=== PATIENT | female | born 1960 | race Caucasian/White ===

== ENCOUNTER 2017-01-26 06:30 | Day surgery (SDC) | payer BC, OTHER ==
[~2017-01-26] VITALS: Ht 157.5 cm; Wt 83.5 kg
--- NOTE | ~2017-01-26 | O ---
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 PROCEDURE: Right knee arthroscopy with debridement of medial compartment chondromalacia, lateral femoral condyle chondromalacia, and patellofemoral chondromalacia and partial medial meniscectomy. SURGEON: Wai Pratt MD INDICATIONS: This active 56-year-old female complains of progressive chronic right knee pain. 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 Clinical exam and MRI scan confirmed moderate degenerative chondromalacia as well as some degenerative tearing of the medial meniscus. We have elected to go ahead with arthroscopic debridement. DESCRIPTION OF PROCEDURE: The patient was taken to the operating room where she was placed under general anesthesia. Prophylactic intravenous antibiotics were administered. The right knee and leg were meticulously prepped and draped and a thigh tourniquet inflated to 300 mmHg. A lateral suprapatellar inflow cannula was placed and the arthroscope and probe were introduced through peripatellar tendon approaches. There was rather marked generalized synovial hypertrophy and some arthrofibrosis making initial evaluation difficult, some generalized debridement debulked the synovitis and removed some of the plica and scarring was accomplished using a rotating shaver. This allowed better visualization. The various compartments were documented with arthroscopic photography. The medial compartment did reveal grade 2 to grade 3 chondromalacia over most of weightbearing surface of the medial femoral condyle. There was some area of loosened and the laminating cartilage, which was trimmed up with the shaver. The corresponding surface on the medial tibial plateau was in much better shape with only minor fissuring and grooving. The medial meniscus was largely intact in the mid and anterior portion, but there was irregular tearing along the posterior aspect extending back to the posterior horn. This area was debrided with a shaver removing about the inner 1/3-1/2 of the meniscus leaving the outer [address] [address] OPERATIVE REPORT Name: DELORES LING Room #: 150-11 [facility].#: [id number] Admission: 01/26/17 Attend Phys: Wai Pratt MD Discharge: Date of : 60 Report #: [id number] 1/2 intact, which seemed to be stable. There was a moderate spurring along the medial border of the medial femoral condyle, this seemed to cause some impingement on the capsule where there was some hypertrophic plica formation. The plica was removed and some of the bony spurring was also debrided using the shaver trimming back to a more smooth even margin of the medial femoral condyle. The lateral compartment revealed much less severe damage with fairly normal appearing lateral meniscus and normal cartilage on the lateral tibial plateau. There was an area of moderate cartilage defect on the lateral femoral condyle, which was in the mid weightbearing portion and included some mild delimitation, which was debrided. The surrounding margin was more stable and seemed to be secured. This is less severe than on the medial side, but still may cause some subjective symptoms. The intercondylar notch reveals normal cruciate ligaments, which appeared to be functioning normally. The patellofemoral articulation reveals [id number] generalized chondromalacia with grade 2 where on the mid and inferior portion of the patella and the mid trochlear region of the distal femur. There were no large loose delaminating fragments, but there was some superficial fraying, which was very gently debrided leaving most of the cartilage in place. The patella seemed to track nicely without any evidence of instability. There was mild synovial hypertrophy in the suprapatellar pouch, which was debrided for visualization. There was some small loose cartilage debris, which also was evacuated. At this point, the knee was copiously irrigated. All excess fluid was evacuated from the knee. The knee was then injected with 80 mg of Depo-Medrol and 30 mL of 0.5% Marcaine with epinephrine. The puncture sites were closed with interrupted nylon suture. A sterile dressing was applied. The patient was awakened and returned to recovery room in good condition. <ELECTRONICALLY SIGNED> By: Wai Pratt MD 01/27/17 1011 [id number] Wai Pratt MD /nt
--- NOTE | ~2017-01-26 | EKG ---
[address] [address] ELECTROCARDIOGRAM REPORT Name: DELORES LING Room #: 150-[address] [place] [address]#: [id number] Admission: 01/26/17 Attend Phys: Wai Pratt MD Discharge: Date of : 60 Report #: [id number] THIS REPORT FOR: //name// [facility] Test Date: 2017-01-26 Test Time: 10:28:30 Pat Name: DELORES LING Department: Room: 150 11 Gender: F Engineering Instructor: JOSE EDUARDO : 1960 Requested By: Wai Pratt Order Number: [id number] MD: Garrett Mariee Measurements Intervals Lawn Rate: 67 P: 31 NC: 146 QRS: 19 QRSD: 96 T: 25 QT: 455 QTc: 481 Interpretive Statements Sinus rhythm Low voltage, precordial leads No previous ECG available for comparison Electronically Signed On 01-26-2017 20:54:15 CDT by Garrett Mariee [email or web address] <ELECTRONICALLY SIGNED> By: Garrett Mariee MD 01/26/17 2054 1028 27 Garrett Mariee MD /ARISTEO
[~2017-01-26 06:30] MED LIST: IBUPROFEN 200200 M1 PO; LOSARTAN POTAS100 MG PO
[2017-01-26 10:45] VITALS: BP 136/84
[2017-01-26 13:11] VITALS: BP 136/84
== END 2017-01-26 16:00 | disposition home or self-care (01) ==
LOC: TBA 06:30 → OR 06:30
DX: M23.221 Derangement of posterior horn of medial meniscus due to old tear or injury, right knee (principal); M94.261 Chondromalacia, right knee; I10 Essential (primary) hypertension; Z90.710 Acquired absence of both cervix and uterus; Z98.890 Other specified postprocedural states
CPT/HCPCS: 50010; 50101; 50405; 51038; 54170; 62110; 62900; 70005